=== PATIENT | male | born 1995 | race Caucasian/White ===

== ENCOUNTER 2018-08-07 18:21 | Emergency (ER) | payer OTHER ==
[2018-08-07] MEDS ORDERED: KETOROLAC 60 MG/2 ML VIAL IM STA (20:32)
[2018-08-07] MEDS ORDERED: diazePAM 5 MG TABLET PO STA (20:32)
--- NOTE | 2018-08-07 20:35 | ED Physician Documentation ---
PD HPI BACK PAIN - Stated complaint Stated Complaint: BACK PX - Chief complaint Chief Complaint: Back Pain - History obtained from History obtained from: Patient - History of Present Illness Timing - onset: How many days ago (4) Timing - details: Gradual onset Severity Comments: moderate Location: Lower Quality: Pain, Spasm, Sharp. No: Tearing Associated symptoms: No: Fever, Weakness, Numbness, Incontinent of urine, Unable to urinate, Hematuria, Incontinent of stool Improves with: Position Worsened by: Movement, Lifting, Twisting Contributing factors: No: Trauma, Anticoagulated, Cancer, IVDA Similar symptoms before: No diagnosis Recently seen: Not recently seen Review of Systems Constitutional: denies: Fever, Chills Eyes: denies: Discharge Ears: denies: Ear pain Cardiac: denies: Chest pain / pressure Musculoskeletal: reports: Back pain Neurologic: denies: Generalized weakness, Focal weakness, Numbness, Difficulty speaking, Altered mental status, Headache PD PAST MEDICAL HISTORY - Past Medical History Past Medical History: No Cardiovascular: None Respiratory: None Neuro: None Endocrine/Autoimmune: None GI: None : None HEENT: None Psych: None Musculoskeletal: None Derm: None - Past Surgical History Past Surgical History: No - Present Medications Home Medications: Ambulatory Orders Medication Instructions Recorded Confirmed Acetaminophen [Tylenol Extra 08/07/18 Strength] Ibuprofen 08/07/18 Naproxen 500 mg PO BID PRN #60 tablet 08/07/18 diazePAM [Valium] 5 mg PO TID PRN #15 tablet 08/07/18 - Allergies Allergies/Adverse Reactions: Allergies Allergy/AdvReac Type Severity Reaction Status Date / Time amoxicillin Allergy Rash Verified 08/07/18 18:26 - Social History Does the pt smoke?: No Smoking Status: Never smoker Does the pt drink ETOH?: Yes Does the pt have substance abuse?: No - Immunizations Immunizations are current?: Yes - POLST Patient has POLST: No PD ED PE NORMAL - General General: Alert and oriented X 3, No acute distress - HEENT HEENT: Atraumatic, PERRL, EOMI, Ears normal - Back Back: No: No spinal TTP (The patient has tenderness of the lumbar paraspinal muscles, there is no crepitus and the patient does have some spasm on examinatio n) - Derm Derm: Normal color - Extremities Extremities: No deformity, Normal ROM s pain - Neuro Neuro: Alert and oriented X 3, fill manager 2-12 intact, No motor deficit, No sensory deficit, Normal speech, Other (2/4 patellar reflexes and normal gait) - Psych Psych: Normal mood Results - Vitals Vitals: Vital Signs - 24 hr 08/07/18 08/07/18 18:22 20:18 Temperature 36.1 C L Heart Rate 74 Respiratory 16 17 Rate Blood Pressure 129/75 O2 Saturation 98 Oxygen O2 Source Room air PD MEDICAL DECISION MAKING - ED course ED course: No findings to suggest acute epidural abscess or cauda equina, And there is no emergent indication for MRI. Presently the patient appears appropriate for discharge and ongoing outpatient management. I recommended follow-up with primary care. I discussed warning signs and recommended returning to the emergency department immediately for any worsening or any concerns. Departure - Departure Disposition: Home, Self Care Clinical Impression: Lumbar spine strain Qualifiers: Encounter type: initial encounter Qualified Code(s): S39.012A - Strain of muscle, fascia and tendon of lower back, initial encounter Condition: Good Instructions: ED Sprain Strain Lumbar Follow-Up: LEONIDAS Grimm [Provider Group] - Within 1 week (Please ask your primary to arrange for outpatient physical therapy. If your symptoms are not improving you may require an outpatient MRI) Prescriptions: diazePAM [Valium] 5 mg PO TID PRN #15 tablet PRN Reason: Spasms Naproxen 500 mg PO BID PRN #60 tablet PRN Reason: Pain Comments: Please return to the emergency department for worsening symptoms or any concerns Forms: Activity restrictions
[2018-08-07 20:57] VITALS: BP 135/75
== END 2018-08-07 20:59 | disposition home or self-care (01) ==
LOC: ED 18:21
DX: S39.012A Strain of muscle, fascia and tendon of lower back, initial encounter (principal); X58.XXXA Exposure to other specified factors, initial encounter
CPT/HCPCS: 96372; 99283; A9270

== ENCOUNTER 2019-01-26 20:45 | Emergency (ER) | payer OTHER ==
[2019-01-26 20:59] VITALS: BP 117/68
--- NOTE | 2019-01-26 21:27 | ED Physician Documentation ---
History of Present Illness - Stated complaint Stated Complaint: SWOLLEN THROAT/FEVER - Chief complaint Chief Complaint: Heent - History obtained from History obtained from: Patient - History of Present Illness Timing: How many days ago (2) Pain level max: 8 Pain level now: 6 - Additonal information Additional information: 23-year-old male with fever and sore throat for the past 2 days. Mild rhinorrhea and congestion. Mild cough. No vomiting. Has had strep in the past and states that this feels similar. Worse with swallowing. Nothing makes it better. Review of Systems Constitutional: reports: Fever Throat: reports: Sore throat GI: denies: Abdominal Pain, Nausea, Vomiting, Diarrhea Skin: denies: Rash Musculoskeletal: denies: Neck pain, Back pain Neurologic: denies: Headache PD PAST MEDICAL HISTORY - Past Medical History Past Medical History: No Cardiovascular: None Respiratory: None Neuro: None Endocrine/Autoimmune: None GI: None : None HEENT: None Psych: None Musculoskeletal: None Derm: None - Past Surgical History Past Surgical History: No - Present Medications Home Medications: Ambulatory Orders Medication Instructions Recorded Confirmed Acetaminophen [Tylenol Extra 08/07/18 Strength] Ibuprofen 08/07/18 Naproxen 500 mg PO BID PRN #60 tablet 08/07/18 diazePAM [Valium] 5 mg PO TID PRN #15 tablet 08/07/18 Clindamycin HCl [Clindamycin 300MG 300 mg PO Q6H #40 capsule 01/26/19 CAP] - Allergies Allergies/Adverse Reactions: Allergies Allergy/AdvReac Type Severity Reaction Status Date / Time amoxicillin Allergy Rash Verified 08/07/18 18:26 - Social History Does the pt smoke?: No Smoking Status: Never smoker Does the pt drink ETOH?: Yes Does the pt have substance abuse?: No - Immunizations Immunizations are current?: Yes - POLST Patient has POLST: No PD ED PE NORMAL - Vitals Vital signs reviewed: Yes - General General: Alert and oriented X 3, No acute distress - HEENT HEENT: Moist mucous membranes, Other (Posterior pharyngeal erythema with tonsillar exudates. Uvula midline. No trismus. Normal phonation.) - Neck Neck: Supple, no meningeal sign, Other (Shotty anterior lymphadenopathy) - Cardiac Cardiac: RRR - Respiratory Respiratory: No respiratory distress, Clear bilaterally - Abdomen Abdomen: Soft, Non tender, Non distended - Derm Derm: Warm and dry, No rash - Neuro Neuro: Alert and oriented X 3 Results - Vitals Vitals: Vital Signs - 24 hr 01/26/19 20:56 Temperature 37.6 C H Heart Rate 90 Respiratory 16 Rate Blood Pressure 117/68 O2 Saturation 98 Oxygen O2 Source Room air - Labs Labs: Laboratory Tests 01/26/19 21:00 Group A Strep Rapid Negative PD MEDICAL DECISION MAKING - ED course Complexity details: reviewed results, considered differential, d/w patient ED course: Patient with what appears to be streptococcal pharyngitis clinically. Will treat with antibiotics. Patient is well-appearing, nontoxic. Given dexamethasone as well. patient counseled regarding signs and symptoms for which I believe and urgent re-evaluation would be necessary. Patient with good understanding of and agreement to plan and is comfortable going home at this time This document was made in part using voice recognition software. While efforts are made to proofread this document, sound alike and grammatical errors may occur. Departure - Departure Disposition: 01 Home, Self Care Clinical Impression: Strep pharyngitis Condition: Good Instructions: ED Strep Pharyngitis Poss Follow-Up: Your,doctor in 1 week [Other] Prescriptions: Clindamycin HCl [Clindamycin 300MG CAP] 300 mg PO Q6H #40 capsule Comments: Take all antibiotics until gone. Return if you worsen. Follow-up with your doctor for further care. Forms: Activity restrictions Discharge Date/Time: 01/26/19 21:47
[2019-01-26] MEDS ORDERED: CHERRY SYRUP 10 ML UDC PO ONE (21:32)
[2019-01-26] MEDS ORDERED: DEXAMETHASONE 10 MG/ML VIAL PO STA (21:32)
[2019-01-26] MEDS ORDERED: CLINDAMYCIN 150 MG CAPSULE PO STA (21:32)
== END 2019-01-26 21:47 | disposition home or self-care (01) ==
LOC: ED 20:45
DX: J02.0 Streptococcal pharyngitis (principal)
CPT/HCPCS: 87070; 87077; 87430; 99283; 99284; A9270

== ENCOUNTER 2019-08-01 15:44 | Emergency (ER) | payer OTHER ==
[2019-08-01] MEDS ORDERED: LOPERAMIDE 2 MG CAPSULE PO STA (17:15)
[2019-08-01] MEDS ORDERED: LACTATED RINGERS 1,000 ML IV STA (17:15)
[2019-08-01] MEDS ORDERED: ONDANSETRON 4 MG/2 ML VIAL IVP STA (17:15)
[2019-08-01] MEDS ORDERED: SODIUM CHLORIDE 0.9% 1,000 ML IV ONE (17:15)
--- NOTE | 2019-08-01 17:15 | ED Physician Documentation ---
PD HPI NVD - Stated complaint Stated Complaint: N/V - Chief complaint Chief Complaint: Abd Pain - History obtained from History obtained from: Patient - History of Present Illness Timing - onset: Today (Previously healthy 24-year-old gentleman has been sick since this morning with vomiting and diarrhea. No abdominal pain. No fevers. His and son were sick about 2 days ago with similar illnesses.) Review of Systems Ten Systems: 10 systems reviewed and negative Constitutional: denies: Fever, Chills Respiratory: denies: Dyspnea, Cough GI: denies: Abdominal Pain, Hematemesis, Bloody / black stool PD PAST MEDICAL HISTORY - Past Medical History Cardiovascular: None Respiratory: None Neuro: None Endocrine/Autoimmune: None GI: None : None HEENT: None Psych: None Musculoskeletal: None Derm: None - Past Surgical History Past Surgical History: No - Present Medications Home Medications: Ambulatory Orders Medication Instructions Recorded Confirmed Acetaminophen [Tylenol Extra 08/07/18 Strength] Ibuprofen 08/07/18 Naproxen 500 mg PO BID PRN #60 tablet 08/07/18 diazePAM [Valium] 5 mg PO TID PRN #15 tablet 08/07/18 Clindamycin HCl [Clindamycin 300MG 300 mg PO Q6H #40 capsule 01/26/19 CAP] - Allergies Allergies/Adverse Reactions: Allergies Allergy/AdvReac Type Severity Reaction Status Date / Time amoxicillin Allergy Rash Verified 08/01/19 15:51 - Social History Does the pt smoke?: No Smoking Status: Never smoker Does the pt drink ETOH?: Yes Does the pt have substance abuse?: No - Immunizations Immunizations are current?: Yes - POLST Patient has POLST: No PD ED PE NORMAL - Vitals Vital signs reviewed: Yes - General General: Alert and oriented X 3, No acute distress - Abdomen Abdomen: Normal bowel sounds, Non tender - Neuro Neuro: Alert and oriented X 3, Normal speech - Psych Psych: Normal mood, Normal affect Results - Vitals Vitals: Vital Signs - 24 hr 08/01/19 08/01/19 15:49 17:52 Temperature 36.9 C 37.7 C H Heart Rate 100 94 Respiratory 18 16 Rate Blood Pressure 119/80 117/74 O2 Saturation 97 100 Oxygen O2 Source Room air - Labs Labs: Laboratory Tests 08/01/19 17:16 Sodium 137 Potassium 3.7 Chloride 98 L Carbon Dioxide 27 Anion Gap 12.0 BUN 15 Creatinine 1.1 Estimated GFR (MDRD) 81 L Glucose 118 H Calcium 9.4 PD MEDICAL DECISION MAKING - ED course ED course: 24-year-old gentleman with clinical Gastroenteritis. Benign exam but note made of tachycardia which for age would suggest dehydration for which he is given IV fluids, Zofran, Imodium. Departure - Departure Disposition: 01 Home, Self Care Clinical Impression: Gastroenteritis Instructions: ED Gastroenteritis Viral Comments: Return in 24 hours if not better, anytime if worse. Forms: Activity restrictions
[2019-08-01 17:39] LABS: CALCIUM 9.4 mg/dL (8.5-10.3); CREATININE 1.1 mg/dL (0.6-1.2)
[2019-08-01 19:19] VITALS: BP 114/76
== END 2019-08-01 19:40 | disposition home or self-care (01) ==
LOC: ED 15:44
DX: K52.9 Noninfective gastroenteritis and colitis, unspecified (principal); R00.0 Tachycardia, unspecified
CPT/HCPCS: 36415; 80048; 96361; 96374; 99283; A9270; J7120